=== PATIENT | male | born 1990 | race American Indian/Alaskan Native ===

== ENCOUNTER 2016-08-13 15:22 | Inpatient (IN) | payer OTHER ==
[2016-08-13] MEDS ORDERED: DUONEB 0.5 MG-3 MG/3 ML SOLN IH ONE ×2 (15:33→15:37)
[2016-08-13] MEDS ORDERED: MAGNESIUM SULFATE 2GM/50ML 2 GM/50 ML BAG IV ONE (15:48)
--- NOTE | 2016-08-13 15:53 | Emergency Department Report ---
HPI - General Chief Complaint: Adult Asthma Time Seen by Provider: 08/13/16 15:48 - HPI HPI: The patient is a 26-year-old male with a history of asthma, presents for evaluation of dyspnea. The patient reports dyspnea wheezing for the past one day, constant since onset, severe, exacerbated with exertion and physical activity. The patient denies fever, cough, chest pain, hemoptysis, unilateral leg swelling, recent immobilization or surgery, history of DVT or PE. ED Past Medical Hx - Past Medical History Previous Medical History?: Yes Hx Asthma: Yes - Surgical History Past Surgical History?: No - Social History Smoking Status: Never Smoker Substance Use Type: Non Opiate Pain, Other ED Review of Systems ROS: Stated complaint: POSS ASTHMA ATTACK Other details as noted in HPI Constitutional: denies: fever ENT: denies: throat or neck pain Respiratory: denies: cough reports shortness of breath Cardiovascular: denies: chest pain Endocrine: denies unexplained weight loss or gain Gastrointestinal: denies: abdominal pain, nausea Genitourinary: denies: dysuria Musculoskeletal: denies: leg swelling Skin: denies: rash Neurological: denies: headache Hematological/Lymphatic: denies: easy bleeding or easy bruising Psych: denies sadness or hopelessness Physical Exam - Physical Exam Vital Signs: Vital Signs 08/13/16 08/13/16 15:28 15:42 Temperature 98.6 F Pulse Rate 103 H Pulse Rate [ 100 H Bilateral Upper Lobe] Respiratory 22 Rate Respiratory 20 Rate [Bilateral Upper Lobe] Blood Pressure 135/93 O2 Sat by Pulse 98 Oximetry Physical Exam: General: well-nourished, well-developed, no acute distress Head: Normocephalic, atraumatic Eyes: normal sclera ENT: Mucous membranes are pink and moist Neck: trachea midline, neck supple, No neck stiffness, no cervical adenopathy Respiratory: Diminished breath sounds and inspiratory and expiratory wheezing present throughout lung young bilaterally, mild tachypnea present, no costal retractions, no respiratory distress, patient unable to speak in full sentences Cardio: S1 and S2 present, no murmurs, rubs, gallops, capillary refill is brisk Abdomen: Normoactive bowel sounds, soft abdomen, no rigidity, no guarding or rebound tenderness Chest WALL/Back: No tenderness to palpation of the chest wall, no CVA tenderness with percussion Musc: No pitting edema Skin: No rash Neuro: no facial drooping, normal speech Psych: Normal affect ED Course Vital Signs 08/13/16 08/13/16 15:28 15:42 Temperature 98.6 F Pulse Rate 103 H Pulse Rate [ 100 H Bilateral Upper Lobe] Respiratory 22 Rate Respiratory 20 Rate [Bilateral Upper Lobe] Blood Pressure 135/93 O2 Sat by Pulse 98 Oximetry ED Medical Decision Making - Medical Decision Making The patient was seen and examined by myself. The patient is placed on a gambling monitor and continuous pulse ox. On initial evaluation, the patient was found to be in no distress. Evaluation orders were placed. The patient is given multiple DuoNeb breathing treatments, IV magnesium, and IV solumedrol for txt of his asthma. EKG is unremarkable. Chest x-ray negative for focal consolidation, pleural effusions, pulmonary congestion, pneumothorax, or other acute cardio pulmonary disease process. Lab results reveal hypoxemia, PO2 65 on ABG. The patient was reevaluated and reported that his dyspnea was only mildly improved and persisted. On reexamination remains with tachypnea, costal retractions, and diffuse wheezing throughout lung young despite multiple breathing treatments and IV medications. As the patient's found to have hypoxemia and refractory wheezing and dyspnea, the patient will be admitted for continued treatment of his asthma and close cardiopulmonary monitoring. Dr. Amaya, the physician on-call for the hospitalist service was contacted. He agreed to admit the patient for further treatment and close monitoring. The ED admit order was placed. The patient was admitted in guarded condition. Critical care attestation.: If time is entered above; I have spent that time in minutes in the direct care of this critically ill patient, excluding procedure time. ED Disposition Clinical Impression: Asthma with status asthmaticus in adult, Hypoxemia Disposition: OP ADMIT IP TO THIS HOSP Is pt being admited?: Yes Does the pt Need Aspirin: Yes Condition: Serious Referrals: PRIMARY CAREMD [Primary Care Provider] - 3-5 Days Time of Disposition: 15:53
[2016-08-13 16:14] LABS: ISTAT Base Excess 1; ISTAT DEVICE 0; ISTAT PCO2 34.9 (35-45); ISTAT PH 7.463 (7.35-7.45); ISTAT PO2 65 (80-105); ISTAT SO2 94; ISTAT TCO2 26
[2016-08-13] MEDS ORDERED: TORADOL ONE (16:54)
--- NOTE | 2016-08-13 16:55 | Admit Criteria Form ---
Admission Criteria Documentation: ASTHMA Clinical Indications for Admission to Inpatient Care (Place 'X' for any and all applicable criteria): Admission is indicated for ANY ONE of the following (1)(2)(3)(4)(5): [ ]I. Absent or markedly diminished breath sounds (silent chest) [X ]II. Oxygen saturation < 92% [ ]III. PaCO2 = / > 42 mm Hg (5.6 kPa) [ ]IV. Peak expiratory flow rate < 40% of predicted or personal best after treatment. [ ]V. Peak expiratory flow rate < 33% of predicted or personal before after treatment [ ]. Change in mental status [ ]VII. Ventilatory support required [ ]VIII. PaO2 < 60 mm Hg (8.0 kPa) [ ]IX. Cyanosis [ ]X. Cardiac dysrhythmia (e.g., bradycardia) [ ]XI. Hemodynamic instability [ ]XII. Radiographic evidence of complication requiring inpatient treatment (e.g., pneumonia, pneumothorax) [X ]XIII. Inpatient admission required rather than observation care (also use Asthma: Observation Care guideline as appropriate) because of ANY ONE of the following: [X]a) Respiratory finding that is severe or persistent (eg, dyspnea, tachypnea, accessory muscle use) [ ]b) Airflow measurements less than 60% of predicted or personal best that persist (e.g., over 24 hours) or worsen despite treatments [X]c) Supplemental oxygen or respiratory treatments for over 24 hours that are performable only in acute inpatient setting [ ]d) Other condition, treatment or monitoring requiring inpatient admission. Extended stay beyond goal length of stay may be needed for (26)(27)(28): [ ]a) Severe respiratory failure (23) (29) (30) [ ]b) Secondary causes and complications (25) [ ]c) Status asthmaticus [ ]d) Chronic obstructive asthma [ ]e) Older patients (29) [ ]f) Slow resolution [ ]g) Clinically significant exacerbation of comorbidities (eg, tanmay. heart failure, atrial fibrillation) The original [facility] content created by [facility] [employer] has been revised. The portions of the content which have been revised are identified through the use of italic text or in bold, and [facility] [employer] has neither reviewed nor approved the modified material. All other unmodified content is copyright [facility] Please see references footnoted in the original [facility] edition 2016 Admission Criteria Met: Yes
[2016-08-13] MEDS ORDERED: PROVENTIL IH ONE (17:04)
[2016-08-13] MEDS ORDERED: TORADOL IV ONE (17:10)
[2016-08-13 17:11] LABS: Hematocrit 41.8 % (35.5-45.6); Hemoglobin 13.9 gm/dl (11.8-15.2); Mean Corpuscular HGB Conc 33 % (32-34); Mean Corpuscular Hemoglobin 28 pg (28-32); Mean Corpuscular Volume 83 fl (84-94); Platelet Count 170 K/mm3 (140-440); Red Blood Count 5.02 M/mm3 (3.65-5.03); Red Cell Distribution Width 12.8 % (13.2-15.2); White Blood Count 16.2 K/mm3 (4.5-11.0)
[2016-08-13] MEDS ORDERED: DULCOLAX PR PRN (17:24)
[2016-08-13] MEDS ORDERED: ZOFRAN IV PRN (17:24)
[2016-08-13] MEDS ORDERED: TYLENOL PO PRN (17:24)
[2016-08-13] MEDS ORDERED: MILK OF MAGNESIA PO PRN (17:24)
[2016-08-13 17:29] LABS: Anion Gap 20 mmol/L; BUN/Creatinine Ratio 5.55; Blood Urea Nitrogen 5 mg/dL (9-20); Calcium 8.7 mg/dL (8.4-10.2); Carbon Dioxide 24 mmol/L (22-30); Chloride 102.4 mmol/L (98-107); Glucose 118 mg/dL (75-100); Potassium 3.1 mmol/L (3.6-5.0); Sodium 143 mmol/L (137-145)
[2016-08-13] MEDS ORDERED: ROCEPHIN/NS 1 GM/50 ML 1 GM/50 ML BAG IV ONE (17:59)
[2016-08-13] MEDS ORDERED: ROCEPHIN/NS 1 GM/50 ML 1 GM/50 ML BAG IV SCH (18:00)
--- NOTE | 2016-08-13 18:18 | XRay Report ---
FINAL REPORT EXAM: XR CHEST 1V AP HISTORY: chest pain TECHNIQUE: AP portable view of the chest. PRIORS: None. FINDINGS: The cardiomediastinal silhouette appears normal. The lungs are clear. The bones and soft tissues are unremarkable. IMPRESSION: No evidence of acute cardiopulmonary disease.
--- NOTE | 2016-08-13 18:38 | History and Physical Report ---
History of Present Illness Date of examination: 08/13/16 Chief complaint: Worsening shortness of breath for 3 days History of present illness: 26 year-old -Tongan male with history of asthma since childhood, not on any medications, and his last attack apparently a year ago, was seen in the emergency department for worsening shortness of breath for 3 days, found to be severely dyspneic and only partially responding to multiple vjgi-um-uiqo neb treatments with albuterol. He is now admitted for asthma exacerbation. He is awake and alert and mildly dyspneic. The present problem started with a cold and congestion and this morning he felt feverish. She has productive cough with yellowish sputum. He denies any sore throat dysphagia. Eyes any chest pain palpitations or syncope. Denies any nausea vomiting diarrhea or abdominal pain. Denies any dysuria. Denies any unintentional weight loss Past History Past Medical History: other (asthma) Medications and Allergies Allergies Allergy/AdvReac Type Severity Reaction Status Date / Time No Known Allergies Allergy Unverified 08/13/16 15:28 Home Medications Medication Instructions Recorded Confirmed Last Taken Type No Known Home Medications [No 08/13/16 08/13/16 Unknown History Reported Home Medications] Active Meds: Active Medications Acetaminophen (Tylenol) 650 mg PO Q4H PRN PRN Reason: Pain MILD(1-3)/Fever >100.5/HIRSCH Albuterol (Proventil) 5 mg IH Q6H [facility] Arformoterol Tartrate (Brovana Nebu) 15 mcg IH Q12HRT [facility] Bisacodyl (Dulcolax) 10 mg [place] QDAY PRN PRN Reason: Constipation unrelieved by MOM Budesonide (Pulmicort) 0.5 mg IH Q12HRT [facility] Famotidine (Pepcid) 20 mg PO BID [facility] Heparin Sodium (Porcine) (Heparin) 5,000 unit SUB-Q Q8HR [facility] Dextrose/Sodium Chloride (D5/0.45ns) 1,000 mls @ 75 mls/hr IV DIRECT [facility] Ceftriaxone Sodium (Rocephin/Ns 1 Gm/50 Ml) 1 gm in 50 mls @ 100 mls/hr IV Q24H [place] PRN Reason: Protocol Magnesium Hydroxide (Milk Of Magnesia) 30 ml PO Q4H PRN PRN Reason: Constipation Methylprednisolone Sodium Succinate (Solu-Medrol) 60 mg IV Q8H [place] Ondansetron HCl (Zofran) 4 mg IV Q8H PRN PRN Reason: N/V unrelieved by Reglan Review of Systems All systems: negative (12 point review of systems is negative except as stated above in the history of present illness) Exam - Constitutional Vitals: Temp Pulse Resp BP Pulse Ox 98.1 F 102 H 22 120/57 99 08/13/16 17:27 08/13/16 17:27 08/13/16 17:27 08/13/16 17:27 08/13/16 17:27 General appearance: Present: mild distress, well-nourished - EENT Eyes: Present: PERRL, EOM intact ENT: hearing intact, clear oral mucosa, no thrush - Neck Neck: Present: supple, normal ROM. Absent: masses or JVD - Respiratory Respiratory effort: other (mild to moderate shortness of breath) Respiratory: bilateral: rhonchi (bilateral diffuse expiratory rhonchi) - Cardiovascular Rhythm: regular Heart Sounds: Present: S1 & S2 - Extremities Extremities: No edema - Abdominal General gastrointestinal: Present: soft, non-tender. Absent: hepatomegaly, splenomegaly - Rectal Rectal Exam: deferred - Integumentary Integumentary: Present: clear - Musculoskeletal Musculoskeletal: strength equal bilaterally - Psychiatric Psychiatric: appropriate mood/affect - Neurologic Neurologic: CNII-XII intact, no focal deficits Results - Labs CBC & Chem 7: 08/13/16 17:02 08/13/16 17:02 Labs: Abnormal lab results 08/13/16 08/13/16 08/13/16 Range/Units 16:07 17:02 17:02 WBC 16.2 H (4.5-11.0) K/mm3 MCV 83 L (84-94) fl RDW 12.8 L (13.2-15.2) % POC ABG pH 7.463 H (7.35-7.45) POC ABG pCO2 34.9 L (35-45) POC ABG pO2 65 L (80-105) Potassium 3.1 L (3.6-5.0) mmol/L BUN 5 L (9-20) mg/dL Glucose 118 H (75-100) mg/dL Assessment and Plan - Patient Problems (1) Acute asthmatic bronchitis Current Visit: Yes Status: Acute Plan to address problem: Admitted to medical floor Restart the patient on aggressive neb treatments with albuterol He also start the patient on inhalation steroids and long-acting beta agonists We will start on Solu-Medrol IV and empiric antibiotics for his acute bronchitis (2) Hypokalemia Current Visit: Yes Status: Acute Plan to address problem: Potassium supplements and monitor electrolytes (3) Neutrophilic leukocytosis Current Visit: Yes Status: Acute Plan to address problem: Antibiotics as stated above No evidence of any sepsis (4) Hypoxemia Current Visit: Yes Status: Acute Plan to address problem: Oxygen supplements
[2016-08-13] MEDS ORDERED: K-DUR PO ONE ×2 (18:41→19:01)
[2016-08-13] MEDS ORDERED: D5/0.45NS 1,000 ML IV SCH (19:00)
[2016-08-13] MEDS: PROVENTIL IH SCH (21:29)
[2016-08-13] MEDS: PULMICORT IH SCH (21:30)
[2016-08-13] MEDS: BROVANA NEBU IH SCH (21:30)
[2016-08-13] MEDS: HEPARIN SUB-Q SCH (23:00)
[2016-08-13] MEDS: PEPCID PO SCH (23:00)
[2016-08-14] MEDS: PROVENTIL IH SCH ×6 (00:33→23:25)
[2016-08-14] MEDS: HEPARIN SUB-Q SCH ×3 (06:05→22:35)
[2016-08-14 08:22] LABS: Basophils % (Auto) 0.2 % (0.0-1.8); Hematocrit 41.4 % (35.5-45.6); Hemoglobin 13.7 gm/dl (11.8-15.2); Mean Corpuscular HGB Conc 33 % (32-34); Mean Corpuscular Hemoglobin 28 pg (28-32); Mean Corpuscular Volume 83 fl (84-94); Platelet Count 158 K/mm3 (140-440); Red Blood Count 4.98 M/mm3 (3.65-5.03); Red Cell Distribution Width 12.9 % (13.2-15.2)
[2016-08-14 08:34] LABS: Anion Gap 22 mmol/L; BUN/Creatinine Ratio 12.85; Blood Urea Nitrogen 9 mg/dL (9-20); Calcium 9.3 mg/dL (8.4-10.2); Carbon Dioxide 21 mmol/L (22-30); Chloride 103.4 mmol/L (98-107); Glucose 147 mg/dL (75-100); Potassium 4.8 mmol/L (3.6-5.0); Sodium 142 mmol/L (137-145)
--- NOTE | 2016-08-14 08:34 | Progress Note ---
Assessment and Plan Assessment and plan: 26 year-old -Senegalese male with history of asthma since childhood, not on any medications, and his last attack apparently a year ago, was seen in the emergency department for worsening shortness of breath for 3 days, found to be severely dyspneic and only partially responding to multiple vuyw-yn-ytvm neb treatments with albuterol. He is now admitted for asthma exacerbation. He is awake and alert and mildly dyspneic. The present problem started with a cold and congestion and this morning he felt feverish. She has productive cough with yellowish sputum. He denies any sore throat dysphagia. Eyes any chest pain palpitations or syncope. Denies any nausea vomiting diarrhea or abdominal pain. Denies any dysuria. Denies any unintentional weight loss (1) Mild intermittent asthma with acute exacerbation Aggressive therapy with nebulizer treatments Continue Solu-Medrol IV and empiric antibiotics for his acute bronchitis (2) Hypokalemia Was repleted and normalized (3) leukocytosis Does not meet sepsis criteria, no sign of infection, Most likely elevated due to stress of Asthma, no further workup (4) acute hypoxic respiratory failure was using accessory muscles when he arrived, rx underlying cause, continue oxygen supplementation prn now improved History Interval history: He reports he still having shortness of breath, having a lot of cough, productive of thick sputum, however he feels that he isn't expectorating the way he wishes he was Hospitalist Physical - Physical exam Narrative exam: General: Patient appears well in no distress HEENT: MMM, EOMI cardiac: S1-S2 heard lungs: Wheezing throughout, and reduced air entry abdomen: soft, nontender, nondistended bowel sounds positive extremities: no edema clubbing or cyanosis Skin: no rash or lesion Neuro: no focal deficit Psych: appropriate behavior and mood, cognition intact - Constitutional Vitals: Temp Pulse Resp BP Pulse Ox 98 F 98 H 18 124/66 99 08/14/16 00:26 08/14/16 02:21 08/14/16 02:21 08/14/16 00:26 08/14/16 00:26 General appearance: Present: mild distress, well-nourished Results - Labs CBC & Chem 7: 08/14/16 07:57 08/14/16 07:57 Labs: Laboratory Last Values WBC 16.0 K/mm3 (4.5-11.0) H 08/14/16 07:57 RBC 4.98 M/mm3 (3.65-5.03) 08/14/16 07:57 Hgb 13.7 gm/dl (11.8-15.2) 08/14/16 07:57 Hct 41.4 % (35.5-45.6) 08/14/16 07:57 MCV 83 fl (84-94) L 08/14/16 07:57 MCH 28 pg (28-32) 08/14/16 07:57 MCHC 33 % (32-34) 08/14/16 07:57 RDW 12.9 % (13.2-15.2) L 08/14/16 07:57 Plt Count 158 K/mm3 (140-440) 08/14/16 07:57 Lymph % (Auto) 9.3 % (13.4-35.0) L 08/14/16 07:57 [place] % (Auto) 4.6 % (0.0-7.3) 08/14/16 07:57 Eos % (Auto) 0.0 % (0.0-4.3) 08/14/16 07:57 Baso % (Auto) 0.2 % (0.0-1.8) 08/14/16 07:57 Lymph # 1.5 K/mm3 (1.2-5.4) 08/14/16 07:57 [place] # 0.7 K/mm3 (0.0-0.8) 08/14/16 07:57 Eos # 0.0 K/mm3 (0.0-0.4) 08/14/16 07:57 Baso # 0.0 K/mm3 (0.0-0.1) 08/14/16 07:57 Seg Neutrophils % 85.9 % (40.0-70.0) H 08/14/16 07:57 Seg Neutrophils # 13.8 K/mm3 (1.8-7.7) H 08/14/16 07:57 POC ABG pH 7.463 (7.35-7.45) H 08/13/16 16:07 POC ABG pCO2 34.9 (35-45) L 08/13/16 16:07 POC ABG pO2 65 (80-105) L 08/13/16 16:07 POC ABG HCO3 25.0 08/13/16 16:07 POC ABG Total CO2 26 08/13/16 16:07 POC ABG O2 Sat 94 08/13/16 16:07 POC ABG Base Excess 1 08/13/16 16:07 FiO2 21 % 08/13/16 16:07 Sodium 143 mmol/L (137-145) 08/13/16 17:02 Potassium 3.1 mmol/L (3.6-5.0) L 08/13/16 17:02 Chloride 102.4 mmol/L (98-107) 08/13/16 17:02 Carbon Dioxide 24 mmol/L (22-30) 08/13/16 17:02 Anion Gap 20 mmol/L 08/13/16 17:02 BUN 5 mg/dL (9-20) L 08/13/16 17:02 Creatinine 0.9 mg/dL (0.8-1.5) 08/13/16 17:02 Estimated GFR > 60 ml/min 08/13/16 17:02 BUN/Creatinine Ratio 5.55 % 08/13/16 17:02 Glucose 118 mg/dL (75-100) H 08/13/16 17:02 Calcium 8.7 mg/dL (8.4-10.2) 08/13/16 17:02
[2016-08-14] MEDS: BROVANA NEBU IH SCH ×2 (08:43→19:33)
[2016-08-14] MEDS: PULMICORT IH SCH ×2 (08:52→19:33)
[2016-08-14] MEDS: PEPCID PO SCH ×2 (11:06→21:20)
[2016-08-14] MEDS ORDERED: ROCEPHIN/NS 1 GM/50 ML 1 GM/50 ML BAG IV SCH (18:00)
[2016-08-15] MEDS: PROVENTIL IH SCH ×2 (05:29→11:01)
[2016-08-15] MEDS: HEPARIN SUB-Q SCH (07:10)
[2016-08-15 09:30] VITALS: BP 143/62
--- NOTE | 2016-08-15 09:32 | Discharge Summary ---
Providers - Providers Date of Admission: 08/13/16 17:24 Attending physician: MYRNA LEGER MD Primary care physician: ULTRASONIC TESTER Hospitalization Condition: Serious Hospital course: 26 year-old -Gabonese male with history of asthma since childhood, not on any medications, and his last attack apparently a year ago, was seen in the emergency department for worsening shortness of breath for 3 days, found to be severely dyspneic and only partially responding to multiple wfdy-vw-phlb neb treatments with albuterol. He is was admitted for acute asthma exacerbation. (1) Mild intermittent asthma with acute exacerbation He received Aggressive therapy with nebulizer treatments and IV steroids and clinically improved, and he is being dc with a steroid taper and rescue inhaler (2) Hypokalemia Was repleted and normalized (3) leukocytosis Does not meet sepsis criteria, no sign of infection, Most likely elevated due to stress of Asthma, no further workup (4) acute hypoxic respiratory failure was using accessory muscles when he arrived, underlying cause which is asthma exacerbation was rx and pateitn improved, he was weaned off supplemental oxygen. Disposition: DC-01 TO HOME OR SELFCARE Time spent for discharge: 32 minutes Core Measure Documentation - Palliative Care Palliative Care/ Comfort Measures: Not Applicable - Core Measures Any of the following diagnoses?: none Exam - Constitutional Vitals: Temp Pulse Resp BP Pulse Ox 97.9 F 72 20 143/62 99 08/15/16 07:00 08/15/16 07:00 08/15/16 07:00 08/15/16 07:00 08/15/16 07:00 General appearance: Present: no acute distress, well-nourished - EENT Eyes: Present: PERRL ENT: hearing intact, clear oral mucosa - Neck Neck: Present: supple, normal ROM - Respiratory Respiratory effort: normal Respiratory: bilateral: CTA - Cardiovascular Heart Sounds: Present: S1 & S2. Absent: rub, click - Extremities Extremities: pulses symmetrical, No edema Peripheral Pulses: within normal limits - Abdominal General gastrointestinal: Present: soft, non-tender, non-distended, normal bowel sounds Male genitourinary: Present: normal - Integumentary Integumentary: Present: clear, warm, dry - Musculoskeletal Musculoskeletal: gait normal, strength equal bilaterally - Psychiatric Psychiatric: appropriate mood/affect, intact judgment & insight - Neurologic Neurologic: CNII-XII intact, moves all extremities Plan Follow up with: PRIMARY CARE,MD [Primary Care Provider] - 3-5 Days Prescriptions: ALBUTEROL Inhaler [ProAir HFA Inhaler] 2 puff IH QID PRN #1 inhalation PRN Reason: Shortness Of Breath guaiFENesin [Mucinex] 600 mg PO Q12H #14 tab.er.12h Prednisone [predniSONE 5 mg (6-Day Pack, 21 Tabs)] 5 mg PO .TAPER #1 tab.ds.pk
[2016-08-15] MEDS: PEPCID PO SCH (10:13)
[2016-08-15] MEDS: PULMICORT IH SCH (11:04)
[2016-08-15] MEDS: BROVANA NEBU IH SCH (11:04)
== END 2016-08-15 16:00 | disposition home or self-care (01) | DRG 202 ==
LOC: ED 15:22 → 3A 17:24
PROVIDERS: ADMIT Internal Medicine; ATTEND Internal Medicine
PROC: 4A033R1 Measurement of Arterial Saturation, Peripheral, Percutaneous Approach (ICD-10-PCS; principal; 2016-08-13)
DX: J45.21 Mild intermittent asthma with (acute) exacerbation (principal); J96.01 Acute respiratory failure with hypoxia; J20.9 Acute bronchitis, unspecified; E87.6 Hypokalemia; D72.829 Elevated white blood cell count, unspecified
CPT/HCPCS: 36415; 71010; 80048; 82803; 85025; 85027; 93005; 93010; 94640; 96361; 96365; 96375; J0696; J1644; J1885; J2930; J3475